=== PATIENT | male | born 1955 | race African-American/Black ===

== ENCOUNTER 2020-11-13 19:00 | Outpatient (CLI) | payer MEDICARE | END 2020-11-13 19:01 | disposition home or self-care (01) | LOC: SLEEPLAB 19:00 | PROVIDERS: ATTEND Family Medicine | DX: G47.33 Obstructive sleep apnea (adult) (pediatric) (principal); R06.83 Snoring; G47.10 Hypersomnia, unspecified; G47.00 Insomnia, unspecified; I10 Essential (primary) hypertension | CPT/HCPCS: 95811 ==

== ENCOUNTER 2022-03-16 16:45 | Observation (INO) | payer OTHER ==
[2022-03-16 18:37] VITALS: BMI 36.3
[2022-03-16] MEDS ORDERED: Ondansetron ODT 4 MG TAB SL PRN (18:45)
[2022-03-16] MEDS ORDERED: Ondansetron PF 4 MG/2 ML Vial IVP PRN (18:45)
[2022-03-16] MEDS: Acetaminophen 325 MG TAB PO PRN (19:55)
[2022-03-16] MEDS: Sodium Chloride 0.9% 1,000 ML IV SCH (20:00)
[2022-03-16] MEDS ORDERED: HumaLOG 300 UNITS/3 ML VIAL SC PRN ×2 (23:43)
[2022-03-16] MEDS ORDERED: Dextrose 5% in Water 1,000 ML IV PRN (23:43)
[2022-03-16] MEDS ORDERED: Dextrose 50% Abboject 50 ML SYRINGE SLOW IVP PRN (23:43)
[2022-03-16 23:56] LABS: #Eosinphils 0.1 thou/uL (0.0-0.7); #Lymphocytes 1.3 thou/uL (1.20-3.40); #Monocytes 0.6 thou/uL (0.11-0.59); #Neutrophils 7.1 thou/uL (1.40-6.50); %Basophils 0.1 % (0.0-1.0); %Eosinophils 1.1 % (0.0-10.0); %Lymphocytes 14.3 % (21.0-51.0); %Monocytes 6.2 % (0.0-10.0); %Neutrophils 78.3 % (42.0-75.0); Mean Corpuscular HGB CONC 34.1 g/dL (32.0-36.0); Mean Corpuscular Hemoglobin 30.5 pg (27.0-31.0); Mean Corpuscular Volume 89.5 fl (78.0-98.0); Mean Platelet Volume 8.6 fL (7.4-10.4); Platelet Count 272 10x3/uL (130-400); RBC Distribution Width 12.3 % (11.5-14.5); Red Blood Cell (RBC) Count 3.26 mill/uL (4.70-6.10); White Blood Cell (WBC) Count 9.1 10x3/uL (4.8-10.8)
[2022-03-17 00:24] LABS: ALT (SGPT) 14 U/L (8-55); AST (SGOT) 14 U/L (5-34); Albumin 3.7 g/dL (3.4-4.8); Alkaline Phosphatase 98 U/L (40-110); BUN (Urea Nitrogen) 17 mg/dL (8.4-25.7); Bilirubin, Total 0.5 mg/dL (0.2-1.2); Calc. Creatinine Clearance 77 mL/min (70-130); Calcium 8.7 mg/dL (7.8-10.44); Carbon Dioxide 22 mmol/L (23-31); Estimated GFR 51; Globulin 3.2 g/dL (2.4-3.5); Glucose 151 mg/dL (80-115); Protein, Total 6.9 g/dL (5.8-8.1)
[2022-03-17] MEDS: Acetaminophen 325 MG TAB PO PRN ×2 (00:42→05:05)
[2022-03-17 00:46] LABS: Magnesium 1.8 mg/dL (1.6-2.6); Phosphorus 3.5 mg/dL (2.3-4.7)
[2022-03-17 01:15] LABS: Chloride 108 mmol/L (98-107); Potassium 4.3 mmol/L (3.5-5.1); Sodium 139 mmol/L (136-145)
[2022-03-17 02:22] LABS: Anion Gap 13 mmol/L (10-20)
[2022-03-17] MEDS: Sodium Chloride 0.9% 1,000 ML IV SCH (05:04)
[2022-03-17] MEDS ORDERED: Amlodipine 10 MG TAB PO SCH (09:00)
[2022-03-17] MEDS ORDERED: Atorvastatin Calcium 40 MG TAB PO SCH (09:00)
[2022-03-17] MEDS ORDERED: glipiZIDE 10 MG TAB PO SCH (09:00)
[2022-03-17] MEDS ORDERED: Clopidogrel Bisulfate 75 MG TAB PO SCH (09:00)
[2022-03-17] MEDS ORDERED: Insulin Glargine 30 UNITS/0.3 ML VIAL SC SCH (09:00)
[2022-03-17] MEDS ORDERED: FLU VACC QS2022-23(6MOS UP)/PF 60 MCG/0.5 ML SYRINGE IM ONE (09:00)
[2022-03-17 12:04] VITALS: BP 124/59; TEMP 98.7
[2022-03-17] MEDS ORDERED: Acetaminophen 325 MG TAB PO PRN (13:43)
== END 2022-03-17 14:56 | disposition home or self-care (01) ==
LOC: INTOOBSV 16:45 → 2NO 16:45 → 2SW 18:34
PROVIDERS: ADMIT Internal Medicine; ATTEND Internal Medicine
DX: E87.5 Hyperkalemia (principal); I12.9 Hypertensive chronic kidney disease with stage 1 through stage 4 chronic kidney disease, or unspecified chronic kidney disease; E11.22 Type 2 diabetes mellitus with diabetic chronic kidney disease; N18.9 Chronic kidney disease, unspecified; N17.9 Acute kidney failure, unspecified; D63.1 Anemia in chronic kidney disease; K52.9 Noninfective gastroenteritis and colitis, unspecified; E78.5 Hyperlipidemia, unspecified; I25.10 Atherosclerotic heart disease of native coronary artery without angina pectoris; Z87.891 Personal history of nicotine dependence; Z79.02 Long term (current) use of antithrombotics/antiplatelets; Z79.4 Long term (current) use of insulin; Z79.82 Long term (current) use of aspirin; Z79.84 Long term (current) use of oral hypoglycemic drugs; Z79.899 Other long term (current) drug therapy; Z88.8 Allergy status to other drugs, medicaments and biological substances; Z95.1 Presence of aortocoronary bypass graft; Z20.822 Contact with and (suspected) exposure to COVID-19
CPT/HCPCS: 80053; 82962; 83735; 84100; 85025; G0378; U0003; U0005; 36415; 36416; J1815; J7050

== ENCOUNTER 2024-12-07 08:09 | Outpatient (CLI) | payer MEDICARE | END 2024-12-07 08:10 | disposition home or self-care (01) | LOC: ULT 08:09 | PROVIDERS: ATTEND Internal Medicine Nephrology | DX: N17.9 Acute kidney failure, unspecified (principal); N40.1 Benign prostatic hyperplasia with lower urinary tract symptoms; R60.0 Localized edema | CPT/HCPCS: 76770 ==